=== PATIENT | female | born 2000 | race Caucasian/White ===

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

== ENCOUNTER → 2020-09-14 | Outpatient (CLI) | payer OTHER ==
--- NOTE | 2020-09-15 23:16 | MR ---
Results: Clinical indication: M79.641. Palpable mass at base of ring finger. COMPARISON: None. TECHNIQUE: Routine noncontrast-enhanced multiplanar, multisequence MR images were obtained of the rig ht hand. FINDINGS: There is a 0.6 x 0.5 cm well-circumscribed, round, low T1/high T2, cystic lesion at the volar aspect of the ring finger proximal phalangeal base. The lesion abuts the flexor tendon. The bone marrow signal is grossly unremarkable. There is no acute fracture or dislocation. Otherwise the extensor and flexor tendons and their tendon sheaths are unremarkable. The pulleys are intact. IMPRESSION: 0.6 cm cystic lesion at the volar aspect of the ring finger proximal phalangeal base, abutting the fl exor tendon. The lesion demonstrates no suspicious features and most consistent with intratendinous g anglion cyst. Finding correspond to area of clinical concern. Malignancy is felt to be less likely. Lesion is amenable to ultrasound-guided aspiration. If there is development of pain or increase in size. Recommend follow-up with contrast-enhanced MRI. Otherwise clinical follow-up to stability.
== END | disposition home or self-care (01) ==
LOC: RADMRIMAIN 17:44
PROVIDERS: ATTEND Orthopaedic Surgery
DX: M71.341 Other bursal cyst, right hand (principal)

== ENCOUNTER 2020-10-30 09:33 | Day surgery (SDC) | payer OTHER ==
[2020-10-27 15:45] VITALS: BMI 22.6
--- NOTE | 2020-10-29 10:34 | HP ---
HISTORY AND PHYSICAL CHIEF COMPLAINT: Right ring finger pain and mass. HISTORY OF PRESENT ILLNESS: Patient is a 20-year-old, right-hand dominant, registered nursing professor, who presents with right ring finger pain and mass for the past year. She has difficulty with gripping and grasping. She denies any traumatic event. She also denies any numbness. PAST MEDICAL HISTORY: Significant for polycystic kidney disease and asthma. PAST SURGICAL HISTORY: Negative. CURRENT MEDICATIONS: Sprintec. ALLERGIES: She denies drug allergies. FAMILY HISTORY: Negative. SOCIAL HISTORY: Negative for current tobacco or alcohol use. REVIEW OF SYSTEMS: Sixteen-point review of systems otherwise reviewed and is noncontributory. PHYSICAL EXAMINATION: On examination, the patient is approximately 5 feet, 6 inches, 140 pounds of mesomorphic habitus. HEENT exam is nonfocal. Neck is supple. She is nontender about the right shoulder, elbow and wrist. On examination of her right hand, she does have a palpable mass measuring 4 x 5 mm about the volar surface of the ring finger over the flexor tendon. The FDP and FDS appear to be intact. She has full digital range of motion. Her distal neurovascular exam appears intact in the right digits. MRI of the right hand shows a cystic area adjacent to the flexor tendon of the ring finger. IMPRESSION: 1. Right ring finger soft tissue mass/probable ganglion. 2. History of polycystic kidney disease. RECOMMENDATIONS: I talked to the patient at length regarding her condition and treatment options. At this point, she opts to proceed with surgery. We will plan to proceed with soft tissue mass excision right ring finger utilizing local anesthetic and IV sedation. We will likely perform that as an outpatient procedure. Risks and benefits were discussed at length in layman's terms. MMODL / IJN: [id number] /
[~2020-10-30 09:33] MED LIST: DEXAMETHASONE SOD PHOSPHATE 4 MG/ML 1 ML VIAL IV ONE; HYDROmorphone 0.5 MG/0.5 ML SYRINGE IVP PRN; LACTATED RINGERS 1,000 ML IV SCH; LIDOCAINE 1% (10MG/ML) FOR IV START INTRADERMA PRN; MIDAZOLAM 2 MG/2 ML VIAL IV PRN; ONDANSETRON 4 MG/2 ML VIAL IVP ONE
[2020-10-30 10:02] VITALS: TEMP 97.7
[2020-10-30] MEDS ORDERED: LIDOCAINE 1% INJ 10MG/ML (20 ML MDV) ONE (10:49)
[2020-10-30] MEDS ORDERED: BUPIVACAINE (PF) 0.25% 30 ML VIAL SQ ONE (10:49)
[2020-10-30] MEDS ORDERED: MIDAZOLAM 2 MG/2 ML VIAL ONE (10:49)
[2020-10-30] MEDS ORDERED: fentaNYL (PF) 50 MCG/ML 2 ML AMP ONE (10:49)
[2020-10-30] MEDS ORDERED: PROPOFOL 10 MG/ML 20 ML VIAL IV ONE (10:49)
--- NOTE | 2020-10-30 11:18 | P.OP ---
Date of Procedure: 10/30/20 Preoperative Diagnosis: Right ring finger volar soft tissue mass Postoperative Diagnosis: Same Procedure(s) Performed: Excision soft tissue mass right ring finger/A1 garcía release Anesthesia: MAC, local Surgeon: Carlo Llanos Estimated Blood Loss (ml): 1 Pathology: none sent Condition: stable Disposition: PACU Indications for Procedure: The patient is a 20-year-old female who presents with a long history of soft tissue mass along the right ring finger volar surface. Clinically and by MRI she was noted to have evidence of a ganglion of the tendon sheath. A discussion of the risks and benefits of operative intervention versus conservative measures was made with patient. She opted to proceed with surgery. Operative risks to include infection, neurovascular injury, recurrence, and possible need for subsequent procedures was discussed. Informed consent was obtained. Operative Findings: As below Description of Procedure: The patient was brought to the operating room, and after induction of IV sedation the right upper extremity was prepped and draped in normal fashion. 3 mL of quarter percent plain Marcaine was injected along the volar surface of the ring finger at the palmar crease. The tourniquet was inflated to 250 mmHg. A 1 cm incision was then made. Skin was incised sharply. Subcu tissue tissues were divided bluntly. The neurovascular bundles were gently retracted. A 5 x 4 mm volar ganglion cyst was noted. This was excised. It was attached to the A1 garcía. The A1 garcía was opened proximal and distal. The flexor tendons appeared to have good excursion. The wound was then irrigated with normal saline. The skin was reapproximated with simple 4-0 nylon sutures. A sterile dressing was applied. The tourniquet was deflated less than 15 minutes total tourniquet time. The patient was awoken from sedation and transferred to recovery room in good condition. Blood loss was estimated 1 mL. No complications were incurred.
[2020-10-30 11:26] VITALS: RESP 16
[2020-10-30 11:54] VITALS: BP 104/65; PULSE 56
== END 2020-10-30 12:20 | disposition home or self-care (01) ==
LOC: OR 09:33
PROVIDERS: ATTEND Orthopaedic Surgery
DX: M67.441 Ganglion, right hand (principal); J45.909 Unspecified asthma, uncomplicated; Z98.891 History of uterine scar from previous surgery; Z79.3 Long term (current) use of hormonal contraceptives; Q61.3 Polycystic kidney, unspecified
CPT/HCPCS: 81025; 88304; 26160; J2250; J1100; J2405; J0690; J2001; J3010; J2704